=== PATIENT | female | born 1955 | race Caucasian/White ===

== ENCOUNTER 2019-01-10 10:42 | Emergency (ER) | payer OTHER ==
[~2019-01-10] VITALS: Ht 162.6 cm; Wt 75.8 kg
[~2019-01-10 10:42] MED LIST: CORTISONE PO; HYDR1TAB94 PO; IBUP400 PO
[2019-01-10] MEDS ORDERED: Norco 5-325 Ta1 EACH PO ×2 (12:00→12:12)
[2019-01-10] MEDS ORDERED: Augmentin 875-1 EACH PO (12:00)
== END 2019-01-10 12:25 | disposition home or self-care (01) ==
LOC: ER 10:42
DX: N76.2 Acute vulvitis (principal); F17.210 Nicotine dependence, cigarettes, uncomplicated
CPT/HCPCS: 96372; 99283-25; J1170; J1885; J2550

== ENCOUNTER 2019-01-12 10:13 | Inpatient (IN) | payer OTHER ==
[~2019-01-12] VITALS: Ht 162.6 cm; Wt 73.5 kg
[~2019-01-12 10:13] MED LIST changes: +Augmentin 875-1 EACH PO; +Norco 5-325 Ta1 EACH PO
[2019-01-12 10:44] LABS: BASOPHILS ABSOLUTE AUTO 0.07 K/mm3 (0.00-0.23); BASOPHILS PERCENT AUTO 0 % (0-2); EOSINOPHILS ABSOLUTE AUTO 0.17 K/mm3 (0.00-0.68); EOSINOPHILS PERCENT AUTO 1 % (0-6); Hematocrit 45.7 % (33.0-51.0); Hemoglobin 14.7 g/dL (11.5-16.0); IMMATURE GRAN ABSOLUTE AUTO 0.12 K/mm3 (0.00-0.10); IMMATURE GRAN PERCENT AUTO 1 % (0-1); LYMPHOCYTES ABSOLUTE AUTO 1.92 K/mm3 (0.84-5.20); LYMPHOCYTES PERCENT AUTO 9 % (21-46); MONOCYTES ABSOLUTE AUTO 1.11 K/mm3 (0.16-1.47); MONOCYTES PERCENT AUTO 6 % (4-13); Mean Corpuscular HGB 28.5 pg (26.0-34.0); Mean Corpuscular HGB Conc 32.2 g/dL (31.5-36.5); Mean Corpuscular Volume 89 fL (80-100); Mean Platelet Volume 8.5 fL (9.1-12.4); NEUTROPHILS ABSOLUTE AUTO 16.95 K/mm3 (1.96-9.15); NEUTROPHILS PERCENT AUTO 83 % (41-73); Platelet Count 479 K/mm3 (150-400); RDW Coefficient Variation 14.2 % (11.7-14.2); RDW Standard Deviation 46.1 fL (35.1-46.3); Red Blood Cell Count 5.15 M/mm3 (3.80-5.20); White Blood Cell Count 20.34 K/mm3 (4.00-11.30)
[2019-01-12 11:06] LABS: Alanine Aminotransfer (ALT/SGP 34 U/L (12-78); Albumin, Blood 3.4 g/dL (3.4-5.0); Albumin/Globulin Ratio 0.8 (0.8-1.8); Alk Phos 140 U/L (50-136); Anion Gap 6 mmol/L (6-16); Aspartate Aminotrans (AST/SGOT 27 U/L (12-37); Bilirubin, Total 0.6 mg/dL (0.1-1.0); Blood Urea Nitrogen 15 mg/dL (8-24); CO2, Blood 26 mmol/L (21-32); Calcium, Blood 9.2 mg/dL (8.5-10.1); Chloride, Blood 107 mmol/L (98-108); Creatinine, Blood 0.62 mg/dL (0.40-1.00); Globulin, Blood 4.4 g/dL (2.2-4.0); Glomerular Filtration Rate >60 (60-); Glucose, Blood 177 mg/dL (70-99); Potassium, Blood 3.7 mmol/L (3.5-5.5); Sodium, Blood 139 mmol/L (136-145); Total Protein, Blood 7.8 g/dL (6.4-8.2)
[2019-01-12] MEDS ORDERED: Mobic15 MG PO (13:16)
[2019-01-12] MEDS ORDERED: HYDSUL200 PO (13:16)
[2019-01-12] MEDS ORDERED: VITAMIN D250000 UNIT PO (13:17)
--- NOTE | 2019-01-12 15:32 | NUR ---
Assumed care of patient from Flavia PEGUERO-ED. A/O x 4, cooperative with care. Received in report patient is anxious and labile. Patient reports BANKS and nausea, medicated per EMAR. 20 g IV RFA. Patient settled and oriented to call light and room. 1 person assist BSC, alarm on, bed in lowest position, call light in reach.
--- NOTE | 2019-01-12 17:16 | NUR ---
Shift Summary A/O x 4. Patient has been tearful x 1 and complaining of nausea. Medicated per EMAR for nausea. Had 1 episode of vomiting this evening, but is now resting comfortably in bed asking about dinner. VSS, afebrile. No other complaints. Will continue to monitor until report given to DOROTHEA PEGUERO.
--- NOTE | 2019-01-12 17:43 | NUR ---
Patient fearful, crying, and frightened of needles when attempting to administer TD vaccine. Educated on the need for vaccine. Patient rolling around in bed crying and stated "I don't want it, don't give it to me." This student nurse and RN decided it was not safe to administer so patient was informed of the decision to not administer. Patient quickly changed her mind and stated "Just give it to me." RN held patient's hands to calm her down while this student nurse administered the vaccine. Other than anxiety and fear of needles, patient tolerated procedure well.
--- NOTE | 2019-01-12 18:27 | NUR ---
STUDENT HAS BEEN CARING FOR PT TODAY. PLEASE REFER TO STUDENT NOTE FOR SHIFT SUMMARY.
--- NOTE | 2019-01-13 04:37 | NUR ---
SHIFT SUMMARY: PT IS ALERT AND ORIENTED. PT IS RATHER ANXIOUS AND FEARFUL OF HER SITUATION, REASSURED NEEDED. PT IS A STANDBY ASSIST TO THE BATHROOM. FAMILY IN VISITING AT THE START OF SHIFT. PT REPORTS ONGOING HEADACHE, MEDICATING PER EMAR. PT REPORTS HEARTBURN ON ONE OCCASION, GAVE CHAMMOMILE TEA, RESOLVED. PT DENIES NAUSEA, VOMITING, AND SOB. PT SLEPT INTERMITTENTLY THROUGHOUT THE NIGHT. BED IN LOW POSITION, CALL LIGHT WITHIN REACH. WILL REPORT TO DAY NURSE.
[2019-01-13 05:17] LABS: Hematocrit 40.2 % (33.0-51.0); Hemoglobin 12.7 g/dL (11.5-16.0); Mean Corpuscular HGB 27.9 pg (26.0-34.0); Mean Corpuscular HGB Conc 31.6 g/dL (31.5-36.5); Mean Corpuscular Volume 88 fL (80-100); Mean Platelet Volume 8.8 fL (9.1-12.4); Platelet Count 450 K/mm3 (150-400); RDW Coefficient Variation 14.3 % (11.7-14.2); RDW Standard Deviation 46.1 fL (35.1-46.3); Red Blood Cell Count 4.55 M/mm3 (3.80-5.20); White Blood Cell Count 13.98 K/mm3 (4.00-11.30)
--- NOTE | 2019-01-13 09:00 | NUR ---
LATE ENTRY 0845 PT REPORTING BANKS, 10/10 THROBBING PAIN. PT SITTING IN BED HOLDING HEAD ROCKING BACK AND FORTH, PT IS IN TEARS. PT STATES SHE HAS NEVER HAD THIS BEFORE AND NOTHING HAS BEEN HELPING. NOTIFIED DR CARLSON, NO NEW ORDERS, DR TO REVIEW AND ENTER ORDER. 0900 ENTRY MEDICATED WITH 1MG DILAUDID AND ZOFRAN FOR NAUSEA. PT HAD 1 EPISOE OF EMESIS PRIOR TO ADMINISTRATION OF ZOFRAN. WARM WASH CLOTH APPLIED TO FOREHEAD. PT PAIN AT 8/10. WILL CONTINUE TO MONITOR.
--- NOTE | 2019-01-13 10:59 | NUR ---
PT BACK FRON CT. CONTINUE TO HAVE EMESIS AND BANKS. NOTIFIED DR CARLSON, NEW ORDERS ENTERED.
--- NOTE | 2019-01-13 11:11 | NUR ---
PT STATES NASUEA HAS PASSED AND NO LONGER NEEDS ADDITIONAL MEDICATIONS. WILL CONTINUE TO MONITOR.
--- NOTE | 2019-01-13 11:39 | NUR ---
AT 1132 PT REPORTING CHEST PRESSURE 3/10 IN CENTER OF CHEST. VS 152/88, HR 73, 97% ON RA, RR12 AND 97.3 TEMP. TELE SR AT 71. PT STATES BANKS AND NASUEA ARE GONE. PAIN IS NOT RADIATING. NOTIFIED DR CARLSON. NEW ORDERS FOR STAT EKG AND TROP. PT STS SHE HAS NOT TAKEN ANYTHING RECENTLY, STATES "POT/DUBS" LAST USED APPROXIMENTLY 3 WEEKS AGO AND HAS NOT USED METH "IN A WHILE" WHEN ASKED WHAT IN A WHILE MEANTS, PT STATES "IN MONTHS." WILL CONTINUE TO MONITOR.
--- NOTE | 2019-01-13 11:55 | NUR ---
EKG COMPLETED, DR CARLSON REVIEWED AND AT BEDSIDE. NEW ORDERS TO D/C TROP. DR CARLSON NOTIFIED PT OF CT/EKG RESULTS. WILL CONTINUE TO MONITOR.
--- NOTE | 2019-01-13 12:16 | NUR ---
PT RESTING IN BED, APPEARS TO BE SLEEPING. NO S/SX OF DISTRESS NOTED. WILL CONTINUE TO MONITOR.
--- NOTE | 2019-01-13 14:33 | NUR ---
NOTIFIED DR CARLSON OF WOUND CULTURE POSITIVE FOR MRSA. NEW ORDERS TO D/C CEFAZOLIN AND NEW ORDER FOR [facility] CONSULT. PT PLACED IN CONTACT ISOLATION
--- NOTE | 2019-01-13 19:33 | NUR ---
SHIFT SUMMARY PT A&Ox3. ANXIOUS AND COOPERATIVE WITH CARE. PT RESTING IN BED DURING SHIFT. UP ON SIDE OF BED FOR MEALS. UP IND TO BATHROOM. PT REPORTING BANKS AND LEFT LABIA PAIN, MEDICATED PER EMAR. PT REPORTS NAUSEA AND 2 EPISODES OF EMESIS, MEDICATED PER EMAR. PT DENIES SOB. CHEST "HEAVINESS" AFTER IMETRIX THIS AM, EKG COMPLETED, DR CARLSON AT BEDSIDE, NO FURTHER COMPLAINTS DURING SHIFT. PT WOUND CULTURE POSITIVE FOR MRSA, NOTIFIED DR CARLSON, SAÚL STARTED THIS AFTERNOON. VSS. NO OTHER ACUTE CHANGES NOTED DURING SHIFT. REPORT GIVEN TO ONCOMING RN.
--- NOTE | 2019-01-14 05:20 | NUR ---
63 Y/O FEMALE C/O ONGOING FRONTAL LOBE BANKS ALL EVENING WITH RELIEF FELT FROM IMITREX 25MG PO X 2 AND NORCO 5/325MG PO X 1 GIVEN. PT ABLE TO AMBULATE FROM BED TO BATHROOM AND BACK WITH GAIT SLOW AND STEADY X 1 STANDBY ASSIST.. PTS LEFT SIDED LABIA RED AND SWOLLEN. PTS BED IN LOW POSITION, CALL LIGHT AT SIDE.
[2019-01-14 15:41] LABS: Vancomycin, Trough 9.6 ug/mL (5.0-10.0)
--- NOTE | 2019-01-14 17:23 | NUR ---
SHIFT SUMMARY THE PATIENT PRESENTED THIS AM COMPLAINING OF A HEADACHE, WITH VITALS WNL, A&O X4, AND WITH LUNG SOUNDS THAT WERE CLEAR, BUT DIM IN THE BASES. THE PATIENT RECEIVED SEVERAL MEDICATIONS BEFORE THE HEADACHE DISOLVED. THE PATIENT HAS BEEN UPSET TODAY (EMOTIONALLY), BUT SPIRITAUL CONSULT HELPED HER. THE PATIENT HAS AN BUFFING WHEEL OPERATOR CONSULT ORDERED. THE PATIENT IS SLEEPING AT THIS TIME, WILL CONTINUE TO MONITOR.
[2019-01-15 05:16] LABS: BASOPHILS ABSOLUTE AUTO 0.09 K/mm3 (0.00-0.23); BASOPHILS PERCENT AUTO 1 % (0-2); EOSINOPHILS ABSOLUTE AUTO 0.19 K/mm3 (0.00-0.68); EOSINOPHILS PERCENT AUTO 2 % (0-6); Hematocrit 43.3 % (33.0-51.0); Hemoglobin 13.8 g/dL (11.5-16.0); IMMATURE GRAN ABSOLUTE AUTO 0.15 K/mm3 (0.00-0.10); IMMATURE GRAN PERCENT AUTO 1 % (0-1); LYMPHOCYTES PERCENT AUTO 17 % (21-46); MONOCYTES ABSOLUTE AUTO 1.01 K/mm3 (0.16-1.47); MONOCYTES PERCENT AUTO 9 % (4-13); Mean Corpuscular HGB 28.2 pg (26.0-34.0); Mean Corpuscular HGB Conc 31.9 g/dL (31.5-36.5); Mean Corpuscular Volume 89 fL (80-100); Mean Platelet Volume 8.4 fL (9.1-12.4); NEUTROPHILS PERCENT AUTO 71 % (41-73); Platelet Count 509 K/mm3 (150-400); RDW Coefficient Variation 13.9 % (11.7-14.2); RDW Standard Deviation 45.3 fL (35.1-46.3); Red Blood Cell Count 4.89 M/mm3 (3.80-5.20); White Blood Cell Count 11.54 K/mm3 (4.00-11.30)
--- NOTE | 2019-01-15 06:22 | NUR ---
SHIFT SUMMARY PT A/O C/O PAIN IN HEAD AND MEDICATED PER EMAR. C/O NAUSEA AND HEARTBURN, GOT ORDER FOR OT PEPCID PO FROM DR BREAUX. HEAD PUMPER MD SAID TO KEEP WARM COMPRESSES ON L SIDE LABIA AND IT HELPED DRAIN IT. SHE WAS DOZING ON AND OFF T/O NIGHT. LAB CAME IN AND SHE WAS VERY HESITANT C DRAW HE STATED SHE HAD THE RIGHT TO REFUSE IF SHE WANTED TO BUT SHE WENT AHEAD C THE DRAW BUT GASPED REALLY LOUD C THE NEEDLE PRICK AND PROCEEDED TO MOAN/CRY IN A DRAMATIC WAY SOBBING FOR AN APPROX ADDITIONAL 20 MIN AND VOMITED AFTERWARDS SAYING "HE MADE ME VERY UPSET". INCONT OF URINE AND ASSISTED TO TAKE A SHOWER. SCD'S IN PLACE. BED ALARM IN USE. CALL LIGHT IN REACH.
[2019-01-15 15:31] LABS: Creatinine, Blood 0.77 mg/dL (0.40-1.00); Vancomycin, Trough 12.7 ug/mL (5.0-10.0)
--- NOTE | 2019-01-15 18:21 | NUR ---
SHIFT SUMMARY NO ACUTE CHANGES. PATIENT MEDICATED X 1 FOR HEADACHE. PATIENT VERY FEARFUL OF NEEDLES AND HAD SOME EPISODES OF CRYING DURING LAB DRAWS AND INJECTIONS. PATIENT REPORTS HER ABSCESS IS FEEING MUCH BETTER. DENIES NAUSEA OR SHORTNESS OF BREATH. POSSIBLE DISCHARGE TOMORROW. CALL LIGHT IN REACH, WILL CONTINUE TO MONITOR.
--- NOTE | 2019-01-16 04:50 | NUR ---
ADMISSION DISCHARGE RN SUMMARY NO ACUTE CHANGES THIS SHIFT. PT AAOX3 AND STANDBY ASSIST TO BATHROOM. TREATED FOR HEADACHE X2 WITH FIORICET WITH GOOD RELIEF. ALSO GAVE PT ZOFRAN X1 FOR NAUSEA. CONTINUED ON IV ABX FOR LABIA CELLULITIS. AREA STILL DRAINING SMALL AMOUNT OF CLEAR/BROWN FLUID. PT REPORTS AREA LOOKS IMPROVED. VSS, WILL CONTINUE TO MONITOR.
[2019-01-16 06:42] LABS: BASOPHILS ABSOLUTE AUTO 0.11 K/mm3 (0.00-0.23); BASOPHILS PERCENT AUTO 1 % (0-2); EOSINOPHILS ABSOLUTE AUTO 0.18 K/mm3 (0.00-0.68); EOSINOPHILS PERCENT AUTO 2 % (0-6); Hematocrit 44.8 % (33.0-51.0); Hemoglobin 14.3 g/dL (11.5-16.0); IMMATURE GRAN ABSOLUTE AUTO 0.18 K/mm3 (0.00-0.10); IMMATURE GRAN PERCENT AUTO 2 % (0-1); LYMPHOCYTES PERCENT AUTO 25 % (21-46); MONOCYTES PERCENT AUTO 11 % (4-13); Mean Corpuscular HGB Conc 31.9 g/dL (31.5-36.5); Mean Corpuscular Volume 88 fL (80-100); Mean Platelet Volume 8.6 fL (9.1-12.4); NEUTROPHILS ABSOLUTE AUTO 5.37 K/mm3 (1.96-9.15); NEUTROPHILS PERCENT AUTO 59 % (41-73); Platelet Count 492 K/mm3 (150-400); RDW Standard Deviation 44.7 fL (35.1-46.3); White Blood Cell Count 9.14 K/mm3 (4.00-11.30)
--- NOTE | 2019-01-16 10:02 | NUR ---
HEARTBURN PT. COMPLAINS OF HEARTBURN AND NAUSEA. REGLAN ADMINISTERED-CALL PLACED TO DR. LOBO FOR ANTACID. PATINT ALSO STATES THAT SHE WOULD LIKE TO BE STARTED ON A PROBIOTIC. WILL DISCUSS WITH DR. LOBO UPON CALL BACK
[2019-01-16] MEDS ORDERED: Esgic Tablet1 EACH PO (12:51)
[2019-01-16] MEDS ORDERED: OMEPRAZOLE MAGN20 MG PO (12:52)
[2019-01-16] MEDS ORDERED: Bactrim Ds Tab1 EACH PO (12:53)
--- NOTE | 2019-01-16 14:15 | NUR ---
DISCHARGE NOTE PT DISCHARGED HOME AMBULATORY POV WITH FRIEND. VERBALIZED UNDERSTANDING OF TAKING MEDICATIONS PRESCRIBED AND MAKING FOLLOW UP APPT WITH OBGYN (NAME AND OFFICE NUMBERS PROVIDED). IV DISCONTINUED INTACT. ALL BELONGINGS SENT WITH PT AT TIME OF DISCHARGE.
== END 2019-01-16 14:26 | disposition short-term general hospital (02) | DRG 872 ==
LOC: ER 10:13 → MEDS 12:58
PROVIDERS: Hospitalist; Physician Assistant; ADMIT Internal Medicine
DX: A41.02 Sepsis due to Methicillin resistant Staphylococcus aureus (principal); N76.2 Acute vulvitis; M06.9 Rheumatoid arthritis, unspecified; Z85.41 Personal history of malignant neoplasm of cervix uteri; Z96.651 Presence of right artificial knee joint; F17.210 Nicotine dependence, cigarettes, uncomplicated; R07.9 Chest pain, unspecified
CPT/HCPCS: 36415; 70450; 72193; 80053; 80202; 82565; 83036; 83605; 85025; 85027; 87040; 87070; 87075; 87077; 87147; 87186; 87205; 90714; 93005; 93010; 96361; 96365-59; 96375-59; 96376-59; 99284-25; A9270-GY; J0690; J1170; J1650; J2405; J2543; J2765; J3030; J3370; J7030; J7050; J7120; Q9967

== ENCOUNTER → 2019-05-31 | Outpatient (CLI) | payer OTHER ==
[~2019-05-31] MED LIST changes: +Bactrim Ds Tab1 EACH PO; +Esgic Tablet1 EACH PO; +HYDSUL200 PO; +Mobic15 MG PO; +OMEPRAZOLE MAGN20 MG PO; +Robaxin-750750 MG PO; +VITAMIN D250000 UNIT PO
[2019-05-31 16:43] LABS: Alanine Aminotransfer (ALT/SGP 28 U/L (12-78); Albumin, Blood 3.7 g/dL (3.4-5.0); Albumin/Globulin Ratio 1.2 (0.8-1.8); Alk Phos 92 U/L (50-136); Anion Gap 5 mmol/L (6-16); Aspartate Aminotrans (AST/SGOT 19 U/L (12-37); Bilirubin, Total 0.3 mg/dL (0.1-1.0); Blood Urea Nitrogen 23 mg/dL (8-24); Bun/Creatinine Ratio 37.6 (12.0-20.0); CO2, Blood 25 mmol/L (21-32); Calcium, Blood 9.2 mg/dL (8.5-10.1); Chloride, Blood 109 mmol/L (98-108); Creatinine, Blood 0.61 mg/dL (0.40-1.00); Glomerular Filtration Rate >60 (60-); Glucose, Blood 185 mg/dL (70-99); Potassium, Blood 4.1 mmol/L (3.5-5.5); Sodium, Blood 139 mmol/L (136-145); Total Protein, Blood 6.7 g/dL (6.4-8.2)
== END | disposition home or self-care (01) ==
LOC: EDSTATUS 09:29 → LAB SHORT 16:15 → LAB 16:15
PROVIDERS: Family Medicine
DX: M06.9 Rheumatoid arthritis, unspecified (principal); I73.9 Peripheral vascular disease, unspecified; I73.1 Thromboangiitis obliterans [Buerger's disease]
CPT/HCPCS: 80053; 83735

== ENCOUNTER 2019-06-03 17:06 | Emergency (ER) | payer OTHER ==
[~2019-06-03] VITALS: Ht 162.6 cm; Wt 84.4 kg
[~2019-06-03 17:06] MED LIST changes: -Robaxin-750750 MG PO
[2019-06-03] MEDS ORDERED: Robaxin-750750 MG PO (21:41)
== END 2019-06-03 22:17 | disposition home or self-care (01) ==
LOC: ER 17:06
DX: R25.2 Cramp and spasm (principal); M06.9 Rheumatoid arthritis, unspecified; K21.9 Gastro-esophageal reflux disease without esophagitis; Z79.899 Other long term (current) drug therapy; F17.210 Nicotine dependence, cigarettes, uncomplicated
CPT/HCPCS: 36415; 80053; 83735; 85025; 93971; 96372; 99283-25; J1630; Q0163

== ENCOUNTER 2019-08-26 20:32 | Emergency (ER) | payer OTHER ==
[~2019-08-26] VITALS: Ht 162.6 cm; Wt 79.8 kg
[~2019-08-26 20:32] MED LIST changes: +Robaxin-750750 MG PO
[2019-08-26] MEDS ORDERED: Bactrim Ds Tab1 EACH PO (21:07)
== END 2019-08-26 21:15 | disposition home or self-care (01) ==
LOC: ER 20:32
DX: A49.02 Methicillin resistant Staphylococcus aureus infection, unspecified site (principal); K21.9 Gastro-esophageal reflux disease without esophagitis; F17.210 Nicotine dependence, cigarettes, uncomplicated; Z79.899 Other long term (current) drug therapy
CPT/HCPCS: 99283; A9270-GY

== ENCOUNTER 2019-09-03 17:37 | Emergency (ER) | payer OTHER ==
[~2019-09-03] VITALS: Ht 162.6 cm; Wt 77.1 kg
[2019-09-03] MEDS ORDERED: Prednisone10 MG PO (17:55)
[2019-09-03] MEDS ORDERED: HYDCHL25 PO (17:55)
[2019-09-03 18:42] LABS: Alanine Aminotransfer (ALT/SGP 27 U/L (12-78); Albumin, Blood 4.3 g/dL (3.4-5.0); Alk Phos 101 U/L (50-136); Anion Gap 7 mmol/L (6-16); Aspartate Aminotrans (AST/SGOT 25 U/L (12-37); Bilirubin, Total 0.5 mg/dL (0.1-1.0); Blood Urea Nitrogen 27 mg/dL (8-24); Bun/Creatinine Ratio 30.7 (12.0-20.0); CO2, Blood 25 mmol/L (21-32); Calcium, Blood 9.8 mg/dL (8.5-10.1); Chloride, Blood 103 mmol/L (98-108); Creatinine, Blood 0.88 mg/dL (0.40-1.00); Globulin, Blood 4.1 g/dL (2.2-4.0); Glomerular Filtration Rate >60 (60-); Glucose, Blood 111 mg/dL (70-99); Potassium, Blood 5.1 mmol/L (3.5-5.5); Sodium, Blood 135 mmol/L (136-145); Total Protein, Blood 8.4 g/dL (6.4-8.2)
[2019-09-03 19:09] LABS: BASOPHILS ABSOLUTE AUTO 0.07 K/mm3 (0.00-0.23); BASOPHILS PERCENT AUTO 1 % (0-2); EOSINOPHILS ABSOLUTE AUTO 0.19 K/mm3 (0.00-0.68); EOSINOPHILS PERCENT AUTO 1 % (0-6); Hematocrit 49.5 % (33.0-51.0); Hemoglobin 16.1 g/dL (11.5-16.0); IMMATURE GRAN ABSOLUTE AUTO 0.05 K/mm3 (0.00-0.10); IMMATURE GRAN PERCENT AUTO 0 % (0-1); LYMPHOCYTES ABSOLUTE AUTO 2.31 K/mm3 (0.84-5.20); LYMPHOCYTES PERCENT AUTO 17 % (21-46); MONOCYTES ABSOLUTE AUTO 1.16 K/mm3 (0.16-1.47); MONOCYTES PERCENT AUTO 9 % (4-13); Mean Corpuscular HGB 28.2 pg (26.0-34.0); Mean Corpuscular HGB Conc 32.5 g/dL (31.5-36.5); Mean Corpuscular Volume 87 fL (80-100); Mean Platelet Volume 8.6 fL (9.1-12.4); NEUTROPHILS ABSOLUTE AUTO 9.72 K/mm3 (1.96-9.15); NEUTROPHILS PERCENT AUTO 72 % (41-73); Platelet Count 485 K/mm3 (150-400); RDW Coefficient Variation 14.5 % (11.7-14.2); RDW Standard Deviation 46.2 fL (35.1-46.3); Red Blood Cell Count 5.71 M/mm3 (3.80-5.20)
[2019-09-03 21:00] LABS: Source, Urine Clean Catch
[2019-09-03 21:04] LABS: Blood, Urine Neg (Neg); Glucose Qualitative, Urine Neg (Neg); Ketones, Urine 3+ (Neg); Leukocyte Esterase, Urine 1+ (Neg); Nitrite, Urine Neg (Neg); Protein, Urine 2+ (Neg); Specific Gravity, Urine 1.025 (1.003-1.022); Urobilinogen, Urine 1+ (Normal)
[2019-09-03] MEDS ORDERED: Colace100 MG PO (21:05)
[2019-09-03] MEDS ORDERED: Magnesium Citr296 ML PO (21:05)
[2019-09-03 21:16] LABS: Bilirubin, Urine 2+ (Neg)
[2019-09-03 21:17] LABS: Appearance, Urine Clear (Clear); Color, Urine Yellow (P-Yellow)
[2019-09-03 21:18] LABS: Red Blood Cells, Urine Not Seen /hpf (0-2); Squamous Epithelial Cells Mod /hpf (Few); White Blood Cells, Urine 0-2 /hpf (0-5)
[2019-09-03 21:19] LABS: Bacteria Mod /hpf
[2019-09-03 21:20] LABS: Hyaline Casts Rare /lpf (0-2); Mucus Light (0-Heavy)
== END 2019-09-03 21:52 | disposition home or self-care (01) ==
LOC: ER 17:37
PROVIDERS: Physician Assistant
DX: K59.00 Constipation, unspecified (principal); Z79.899 Other long term (current) drug therapy; Z79.52 Long term (current) use of systemic steroids; K21.9 Gastro-esophageal reflux disease without esophagitis; F17.210 Nicotine dependence, cigarettes, uncomplicated
CPT/HCPCS: 36415; 74018; 80053; 81001; 85025; 87086; 99283-25

== ENCOUNTER → 2020-07-05 | Outpatient (CLI) | payer OTHER ==
[~2020-07-05] MED LIST changes: +Colace100 MG PO; +Cyclobenzaprine5 MG PO; +HYDCHL25 PO; +Magnesium Citr296 ML PO; +Prednisone10 MG PO
== END | disposition home or self-care (01) ==
LOC: PLD 07:43 → LAB SHORT 07:43
DX: L30.8 Other specified dermatitis (principal)
CPT/HCPCS: 88305; 88312; 88313

== ENCOUNTER 2020-08-23 09:58 | Emergency (ER) | payer OTHER ==
[~2020-08-23] VITALS: Ht 170.2 cm; Wt 77.1 kg
[2020-08-23 10:56] LABS: BASOPHILS ABSOLUTE AUTO 0.07 K/mm3 (0.00-0.23); BASOPHILS PERCENT AUTO 1 % (0-2); EOSINOPHILS ABSOLUTE AUTO 0.24 K/mm3 (0.00-0.68); EOSINOPHILS PERCENT AUTO 3 % (0-6); Hematocrit 50.7 % (33.0-51.0); Hemoglobin 16.3 g/dL (11.5-16.0); IMMATURE GRAN ABSOLUTE AUTO 0.02 K/mm3 (0.00-0.10); IMMATURE GRAN PERCENT AUTO 0 % (0-1); LYMPHOCYTES ABSOLUTE AUTO 2.02 K/mm3 (0.84-5.20); LYMPHOCYTES PERCENT AUTO 26 % (21-46); MONOCYTES ABSOLUTE AUTO 0.85 K/mm3 (0.16-1.47); MONOCYTES PERCENT AUTO 11 % (4-13); Mean Corpuscular HGB 27.9 pg (26.0-34.0); Mean Corpuscular HGB Conc 32.1 g/dL (31.5-36.5); Mean Corpuscular Volume 87 fL (80-100); Mean Platelet Volume 8.6 fL (9.1-12.4); NEUTROPHILS ABSOLUTE AUTO 4.65 K/mm3 (1.96-9.15); NEUTROPHILS PERCENT AUTO 59 % (41-73); Platelet Count 442 K/mm3 (150-400); RDW Coefficient Variation 14.6 % (11.7-14.2); RDW Standard Deviation 47.1 fL (35.1-46.3); Red Blood Cell Count 5.85 M/mm3 (3.80-5.20); White Blood Cell Count 7.85 K/mm3 (4.00-11.30)
[2020-08-23 11:12] LABS: Alanine Aminotransfer (ALT/SGP 58 U/L (12-78); Albumin, Blood 3.7 g/dL (3.4-5.0); Albumin/Globulin Ratio 0.9 (0.8-1.8); Alk Phos 151 U/L (50-136); Anion Gap 4 mmol/L (6-16); Aspartate Aminotrans (AST/SGOT 40 U/L (12-37); Bilirubin, Total 0.3 mg/dL (0.1-1.0); Blood Urea Nitrogen 25 mg/dL (8-24); Bun/Creatinine Ratio 41.1 (12.0-20.0); CO2, Blood 29 mmol/L (21-32); Calcium, Blood 9.5 mg/dL (8.5-10.1); Chloride, Blood 106 mmol/L (98-108); Creatinine, Blood 0.61 mg/dL (0.40-1.00); Globulin, Blood 3.9 g/dL (2.2-4.0); Glomerular Filtration Rate >60 (60-); Glucose, Blood 101 mg/dL (70-99); Potassium, Blood 4.4 mmol/L (3.5-5.5); Sodium, Blood 139 mmol/L (136-145); Total Protein, Blood 7.6 g/dL (6.4-8.2)
[2020-08-23 12:09] LABS: Source, Urine Clean Catch
[2020-08-23 12:13] LABS: Appearance, Urine Clear (Clear); Bilirubin, Urine Neg (Neg); Blood, Urine 1+ (Neg); Color, Urine Yellow (P-Yellow); Glucose Qualitative, Urine Neg (Neg); Ketones, Urine Neg (Neg); Leukocyte Esterase, Urine 2+ (Neg); Nitrite, Urine Pos (Neg); Protein, Urine Neg (Neg); Specific Gravity, Urine 1.015 (1.003-1.022); Urobilinogen, Urine NORM (Normal)
[2020-08-23 12:35] LABS: Bacteria Many /hpf; Red Blood Cells, Urine 0-2 /hpf (0-2); Squamous Epithelial Cells Mod /hpf (Few)
[2020-08-23] MEDS ORDERED: METPRE4DP PO (14:49)
[2020-08-23] MEDS ORDERED: OXYC5 PO (14:49)
== END 2020-08-23 15:58 | disposition home or self-care (01) ==
LOC: ER 09:58
PROVIDERS: Emergency Medicine
DX: M51.16 Intervertebral disc disorders with radiculopathy, lumbar region (principal); M21.371 Foot drop, right foot; Z79.899 Other long term (current) drug therapy
CPT/HCPCS: 36415; 72100; 72148; 80053; 81001; 85025; 87077; 87086; 87186; 96374; 99284-25; J1100

== ENCOUNTER 2020-08-29 21:56 | Emergency (ER) | payer OTHER ==
[~2020-08-29] VITALS: Ht 162.6 cm; Wt 79.8 kg
[~2020-08-29 21:56] MED LIST changes: +METPRE4DP PO; +OXYC5 PO
[2020-08-29 22:28] LABS: BASOPHILS ABSOLUTE AUTO 0.09 K/mm3 (0.00-0.23); BASOPHILS PERCENT AUTO 1 % (0-2); EOSINOPHILS ABSOLUTE AUTO 0.36 K/mm3 (0.00-0.68); EOSINOPHILS PERCENT AUTO 2 % (0-6); Hemoglobin 15.7 g/dL (11.5-16.0); IMMATURE GRAN PERCENT AUTO 1 % (0-1); LYMPHOCYTES ABSOLUTE AUTO 3.46 K/mm3 (0.84-5.20); LYMPHOCYTES PERCENT AUTO 21 % (21-46); MONOCYTES ABSOLUTE AUTO 1.38 K/mm3 (0.16-1.47); MONOCYTES PERCENT AUTO 8 % (4-13); Mean Corpuscular HGB 27.7 pg (26.0-34.0); Mean Corpuscular Volume 86 fL (80-100); Mean Platelet Volume 8.6 fL (9.1-12.4); NEUTROPHILS ABSOLUTE AUTO 11.49 K/mm3 (1.96-9.15); NEUTROPHILS PERCENT AUTO 68 % (41-73); Platelet Count 479 K/mm3 (150-400); RDW Coefficient Variation 14.6 % (11.7-14.2); RDW Standard Deviation 46.8 fL (35.1-46.3); Red Blood Cell Count 5.67 M/mm3 (3.80-5.20); White Blood Cell Count 16.88 K/mm3 (4.00-11.30)
[2020-08-29 22:42] LABS: International Normalized Ratio 0.95; Prothrombin Time Results 10.2 Sec (9.7-11.5)
[2020-08-29 22:50] LABS: Alanine Aminotransfer (ALT/SGP 43 U/L (12-78); Albumin, Blood 4.2 g/dL (3.4-5.0); Albumin/Globulin Ratio 1.2 (0.8-1.8); Alk Phos 136 U/L (50-136); Anion Gap 6 mmol/L (6-16); Aspartate Aminotrans (AST/SGOT 27 U/L (12-37); Bilirubin, Total 0.8 mg/dL (0.1-1.0); Blood Urea Nitrogen 30 mg/dL (8-24); Bun/Creatinine Ratio 42.2 (12.0-20.0); C-REACTIVE PROTEIN, EXT RANGE <0.290 mg/dL (0.000-0.300); CO2, Blood 30 mmol/L (21-32); Calcium, Blood 9.4 mg/dL (8.5-10.1); Chloride, Blood 105 mmol/L (98-108); Creatinine, Blood 0.71 mg/dL (0.40-1.00); Globulin, Blood 3.6 g/dL (2.2-4.0); Glomerular Filtration Rate >60 (60-); Glucose, Blood 100 mg/dL (70-99); Potassium, Blood 3.8 mmol/L (3.5-5.5); Sodium, Blood 141 mmol/L (136-145); Total Protein, Blood 7.8 g/dL (6.4-8.2); Troponin I <0.015 ng/mL (0.000-0.040)
[2020-08-29] MEDS ORDERED: Hydroxychloroq200 MG PO (23:46)
[2020-08-29] MEDS ORDERED: OXYC5 (23:48)
[2020-08-30] MEDS ORDERED: Roxicodone5 MG PO (00:19)
== END 2020-08-30 01:00 | disposition home or self-care (01) ==
LOC: ER 21:56
PROVIDERS: Physician Assistant
DX: M79.604 Pain in right leg (principal); G54.4 Lumbosacral root disorders, not elsewhere classified; F17.210 Nicotine dependence, cigarettes, uncomplicated; Z79.52 Long term (current) use of systemic steroids
CPT/HCPCS: 36415; 80053; 84484; 85025; 85610; 86140; 93005; 93010; 93925; 96374; 96375; 99284-25; A9270; J1170; J2405

== ENCOUNTER → 2020-09-11 | Outpatient (CLI) | payer OTHER ==
[~2020-09-11] MED LIST changes: +Hydroxychloroq200 MG PO; +OXYC5; +Roxicodone5 MG PO
[2020-09-14 04:46] LABS: CHLAMYDIA TRACHOMATIS, NAA Negative (Negative)
== END | disposition home or self-care (01) ==
LOC: LAB EV 11:47 → LAB SHORT 11:47
PROVIDERS: Physician Assistant
DX: N89.8 Other specified noninflammatory disorders of vagina (principal)
CPT/HCPCS: 87070; 87205; 87491; 87591

== ENCOUNTER 2020-09-17 16:06 | Emergency (ER) | payer OTHER ==
[~2020-09-17] VITALS: Ht 162.6 cm; Wt 79.8 kg
== END 2020-09-17 16:46 | disposition home or self-care (01) ==
LOC: ER 16:06
DX: Z48.00 Encounter for change or removal of nonsurgical wound dressing (principal); F17.210 Nicotine dependence, cigarettes, uncomplicated
CPT/HCPCS: 99282

== ENCOUNTER → 2020-09-18 | Outpatient (CLI) | payer OTHER | END | disposition home or self-care (01) | LOC: LAB SHORT 16:15 → LAB 16:15 | DX: S90.851A Superficial foreign body, right foot, initial encounter (principal) | CPT/HCPCS: 87070; 87075; 87077; 87186; 87205 ==

== ENCOUNTER → 2020-09-22 | Outpatient (CLI) | payer OTHER ==
[2020-09-22 12:48] LABS: BASOPHILS ABSOLUTE AUTO 0.09 K/mm3 (0.00-0.23); BASOPHILS PERCENT AUTO 1 % (0-2); EOSINOPHILS ABSOLUTE AUTO 0.26 K/mm3 (0.00-0.68); EOSINOPHILS PERCENT AUTO 2 % (0-6); Hematocrit 42.8 % (33.0-51.0); Hemoglobin 14.1 g/dL (11.5-16.0); IMMATURE GRAN ABSOLUTE AUTO 0.06 K/mm3 (0.00-0.10); IMMATURE GRAN PERCENT AUTO 1 % (0-1); LYMPHOCYTES ABSOLUTE AUTO 2.04 K/mm3 (0.84-5.20); LYMPHOCYTES PERCENT AUTO 18 % (21-46); MONOCYTES ABSOLUTE AUTO 1.08 K/mm3 (0.16-1.47); MONOCYTES PERCENT AUTO 9 % (4-13); Mean Corpuscular HGB Conc 32.9 g/dL (31.5-36.5); Mean Corpuscular Volume 85 fL (80-100); Mean Platelet Volume 8.7 fL (9.1-12.4); NEUTROPHILS ABSOLUTE AUTO 8.12 K/mm3 (1.96-9.15); NEUTROPHILS PERCENT AUTO 70 % (41-73); Platelet Count 468 K/mm3 (150-400); RDW Coefficient Variation 15.3 % (11.7-14.2); RDW Standard Deviation 47.3 fL (35.1-46.3); Red Blood Cell Count 5.03 M/mm3 (3.80-5.20); White Blood Cell Count 11.65 K/mm3 (4.00-11.30)
[2020-09-22 12:58] LABS: Alanine Aminotransfer (ALT/SGP 33 U/L (12-78); Albumin, Blood 3.5 g/dL (3.4-5.0); Albumin/Globulin Ratio 0.9 (0.8-1.8); Alk Phos 111 U/L (40-126); Anion Gap 12 mmol/L (6-16); Aspartate Aminotrans (AST/SGOT 17 U/L (12-37); Bilirubin, Total 0.4 mg/dL (0.1-1.0); Blood Urea Nitrogen 26 mg/dL (8-24); Bun/Creatinine Ratio 32.5 (12.0-20.0); CO2, Blood 26 mmol/L (21-32); Chloride, Blood 101 mmol/L (98-108); Globulin, Blood 3.8 g/dL (2.2-4.0); Glomerular Filtration Rate >60 (60-); Glucose, Blood 128 mg/dL (70-99); Potassium, Blood 3.9 mmol/L (3.5-5.5); Sodium, Blood 139 mmol/L (136-145); Total Protein, Blood 7.3 g/dL (6.4-8.2)
== END ==
LOC: LAB SHORT 12:42 → PLD 12:42
PROVIDERS: General Practice
DX: G43.909 Migraine, unspecified, not intractable, without status migrainosus (principal)
CPT/HCPCS: 80053; 85025

== ENCOUNTER → 2021-01-12 | Outpatient (CLI) | payer OTHER ==
[2021-01-12 15:32] LABS: BASOPHILS ABSOLUTE AUTO 0.07 K/mm3 (0.00-0.23); BASOPHILS PERCENT AUTO 2 % (0-2); EOSINOPHILS PERCENT AUTO 5 % (0-6); Hematocrit 41.1 % (33.0-51.0); Hemoglobin 13.4 g/dL (11.5-16.0); IMMATURE GRAN ABSOLUTE AUTO 0.03 K/mm3 (0.00-0.10); IMMATURE GRAN PERCENT AUTO 1 % (0-1); LYMPHOCYTES ABSOLUTE AUTO 2.02 K/mm3 (0.84-5.20); LYMPHOCYTES PERCENT AUTO 46 % (21-46); MONOCYTES ABSOLUTE AUTO 0.67 K/mm3 (0.16-1.47); MONOCYTES PERCENT AUTO 15 % (4-13); Mean Corpuscular HGB 27.4 pg (26.0-34.0); Mean Corpuscular HGB Conc 32.6 g/dL (31.5-36.5); Mean Corpuscular Volume 84 fL (80-100); Mean Platelet Volume 8.6 fL (9.1-12.4); NEUTROPHILS ABSOLUTE AUTO 1.41 K/mm3 (1.96-9.15); NEUTROPHILS PERCENT AUTO 32 % (41-73); Platelet Count 344 K/mm3 (150-400); RDW Coefficient Variation 16.8 % (11.7-14.2); RDW Standard Deviation 50.2 fL (35.1-46.3); Red Blood Cell Count 4.89 M/mm3 (3.80-5.20)
[2021-01-12 15:45] LABS: Anion Gap 9 mmol/L (6-16); Blood Urea Nitrogen 23 mg/dL (8-24); Bun/Creatinine Ratio 30.3 (12.0-20.0); CO2, Blood 28 mmol/L (21-32); Calcium, Blood 9.1 mg/dL (8.5-10.1); Chloride, Blood 105 mmol/L (98-108); Creatinine, Blood 0.76 mg/dL (0.40-1.00); Glomerular Filtration Rate >60 (60-); Glucose, Blood 108 mg/dL (70-99); Potassium, Blood 3.8 mmol/L (3.5-5.5); Sodium, Blood 142 mmol/L (136-145)
[2021-01-12 15:46] LABS: Troponin I <0.017 ng/mL (0.000-0.040)
== END | disposition home or self-care (01) ==
LOC: LAB SHORT 15:27
PROVIDERS: Physician Assistant
DX: R63.5 Abnormal weight gain (principal); R60.9 Edema, unspecified
CPT/HCPCS: 80048; 83880; 84443; 84484; 85025

== ENCOUNTER 2021-01-26 03:05 | Emergency (ER) | payer OTHER ==
[~2021-01-26] VITALS: Ht 162.6 cm; Wt 86.2 kg
== END 2021-01-26 03:25 | disposition left against medical advice (07) ==
LOC: ER 03:05
DX: Z53.21 Procedure and treatment not carried out due to patient leaving prior to being seen by health care provider (principal)

== ENCOUNTER → 2021-03-30 | Outpatient (CLI) | payer OTHER ==
[2021-03-31 09:20] LABS: Candida species (DNA Probe) Positive (NEGATIVE); G. vaginalis (DNA Probe) Negative (NEGATIVE); T. vaginalis (DNA Probe) Negative (NEGATIVE)
== END | disposition home or self-care (01) ==
LOC: LAB SHORT 19:18 → LAB 19:18
PROVIDERS: Family Medicine
DX: R30.0 Dysuria (principal)
CPT/HCPCS: 87077; 87086; 87186; 87480; 87510; 87660

== ENCOUNTER 2021-04-21 09:02 | Emergency (ER) | payer OTHER ==
[~2021-04-21] VITALS: Ht 162.6 cm; Wt 77.1 kg
[2021-04-21] MEDS ORDERED: FUROSEMIDE20 MG PO (09:20)
[2021-04-21] MEDS ORDERED: ALPRAZOLAM0.5 M1 PO (09:20)
[2021-04-21] MEDS ORDERED: ESCI20 PO (09:20)
[2021-04-21] MEDS ORDERED: OMEP20ER PO (09:20)
[2021-04-21] MEDS ORDERED: Buspirone HCl15 MG PO (09:20)
[2021-04-21] MEDS ORDERED: BUSP10 PO (09:20)
[2021-04-21] MEDS ORDERED: PREGABALIN100 MG PO (09:21)
[2021-04-21] MEDS ORDERED: KLOR-CON 1010 ME3 PO (09:21)
[2021-04-21] MEDS ORDERED: HYDHCL25 PO (09:21)
[2021-04-21 10:10] LABS: BASOPHILS ABSOLUTE AUTO 0.07 K/mm3 (0.00-0.23); BASOPHILS PERCENT AUTO 1 % (0-2); EOSINOPHILS PERCENT AUTO 2 % (0-6); Hematocrit 39.9 % (33.0-51.0); IMMATURE GRAN ABSOLUTE AUTO 0.03 K/mm3 (0.00-0.10); IMMATURE GRAN PERCENT AUTO 0 % (0-1); LYMPHOCYTES PERCENT AUTO 15 % (21-46); MONOCYTES ABSOLUTE AUTO 0.66 K/mm3 (0.16-1.47); MONOCYTES PERCENT AUTO 7 % (4-13); Mean Corpuscular HGB 26.2 pg (26.0-34.0); Mean Corpuscular HGB Conc 32.6 g/dL (31.5-36.5); Mean Corpuscular Volume 80 fL (80-100); NEUTROPHILS ABSOLUTE AUTO 7.02 K/mm3 (1.96-9.15); NEUTROPHILS PERCENT AUTO 75 % (41-73); Platelet Count 430 K/mm3 (150-400); RDW Coefficient Variation 16.7 % (11.7-14.2); RDW Standard Deviation 48.7 fL (35.1-46.3); Red Blood Cell Count 4.97 M/mm3 (3.80-5.20); White Blood Cell Count 9.38 K/mm3 (4.00-11.30)
[2021-04-21 10:18] LABS: Anion Gap 7 mmol/L (6-16); Blood Urea Nitrogen 22 mg/dL (8-24); Bun/Creatinine Ratio 35.7 (12.0-20.0); CO2, Blood 27 mmol/L (21-32); Calcium, Blood 8.9 mg/dL (8.5-10.1); Chloride, Blood 108 mmol/L (98-108); Creatinine, Blood 0.62 mg/dL (0.40-1.00); Glomerular Filtration Rate >60 (60-); Glucose, Blood 123 mg/dL (70-99); Potassium, Blood 3.3 mmol/L (3.5-5.5); Sodium, Blood 142 mmol/L (136-145)
[2021-04-21] MEDS ORDERED: IBUP600 PO (12:38)
== END 2021-04-21 14:54 | disposition home or self-care (01) ==
LOC: ER 09:02
PROVIDERS: Student in an Organized Health Care Education/Training Program
DX: L03.116 Cellulitis of left lower limb (principal); L03.115 Cellulitis of right lower limb; K21.9 Gastro-esophageal reflux disease without esophagitis; F17.210 Nicotine dependence, cigarettes, uncomplicated; Z88.6 Allergy status to analgesic agent; Z88.5 Allergy status to narcotic agent; Z79.899 Other long term (current) drug therapy
CPT/HCPCS: 36415; 80048; 85025; 85651; 86141; 96365; 96367; 96375; 99283-25; A9270; J0696; J1885; J2765; J3370; J7050

== ENCOUNTER → 2021-04-22 | Outpatient (CLI) | payer OTHER ==
[~2021-04-22] MED LIST changes: +ALPRAZOLAM0.5 M1 PO; +BUSP10 PO; +Buspirone HCl15 MG PO; +ESCI20 PO; +FUROSEMIDE20 MG PO; +HYDHCL25 PO; +IBUP600 PO; +KLOR-CON 1010 ME3 PO; +OMEP20ER PO; +PREGABALIN100 MG PO
== END | disposition home or self-care (01) ==
LOC: LAB 17:20 → LAB SHORT 17:20
DX: L03.116 Cellulitis of left lower limb (principal)
CPT/HCPCS: 87070; 87075; 87077; 87147; 87186; 87205

== ENCOUNTER 2021-09-02 21:38 | Emergency (ER) | payer OTHER ==
[~2021-09-02] VITALS: Ht 162.6 cm; Wt 77.1 kg
[2021-09-02] MEDS ORDERED: Prednisone20 MG PO (22:16)
== END 2021-09-02 22:28 | disposition home or self-care (01) ==
LOC: ER 21:38
DX: M06.9 Rheumatoid arthritis, unspecified (principal); K21.9 Gastro-esophageal reflux disease without esophagitis; F17.210 Nicotine dependence, cigarettes, uncomplicated; Z88.5 Allergy status to narcotic agent; Z88.6 Allergy status to analgesic agent; Z79.899 Other long term (current) drug therapy
CPT/HCPCS: 99282; A9270; J7512

== ENCOUNTER → 2022-01-25 | Outpatient (CLI) | payer OTHER ==
[~2022-01-25] MED LIST changes: +Prednisone20 MG PO
[2022-01-25 17:49] LABS: BASOPHILS ABSOLUTE AUTO 0.07 K/mm3 (0.00-0.23); BASOPHILS PERCENT AUTO 0 % (0-2); EOSINOPHILS ABSOLUTE AUTO 0.18 K/mm3 (0.00-0.68); EOSINOPHILS PERCENT AUTO 1 % (0-6); Hemoglobin 12.6 g/dL (11.5-16.0); IMMATURE GRAN ABSOLUTE AUTO 0.19 K/mm3 (0.00-0.10); IMMATURE GRAN PERCENT AUTO 1 % (0-1); LYMPHOCYTES ABSOLUTE AUTO 1.94 K/mm3 (0.84-5.20); LYMPHOCYTES PERCENT AUTO 12 % (21-46); MONOCYTES ABSOLUTE AUTO 1.01 K/mm3 (0.16-1.47); MONOCYTES PERCENT AUTO 6 % (4-13); Mean Corpuscular HGB 25.9 pg (26.0-34.0); Mean Corpuscular HGB Conc 32.3 g/dL (31.5-36.5); Mean Corpuscular Volume 80 fL (80-100); NEUTROPHILS ABSOLUTE AUTO 12.85 K/mm3 (1.96-9.15); NEUTROPHILS PERCENT AUTO 79 % (41-73); RDW Coefficient Variation 17.6 % (11.7-14.2); RDW Standard Deviation 50.4 fL (35.1-46.3); Red Blood Cell Count 4.86 M/mm3 (3.80-5.20); White Blood Cell Count 16.24 K/mm3 (4.00-11.30)
[2022-01-25 17:59] LABS: Alanine Aminotransfer (ALT/SGP 35 U/L (12-78); Albumin, Blood 3.1 g/dL (3.4-5.0); Albumin/Globulin Ratio 0.8 (0.8-1.8); Alk Phos 121 U/L (40-126); Anion Gap 7 mmol/L (6-16); Aspartate Aminotrans (AST/SGOT 18 U/L (12-37); Bilirubin, Total 0.4 mg/dL (0.1-1.0); Blood Urea Nitrogen 24 mg/dL (8-24); Bun/Creatinine Ratio 30.4 (12.0-20.0); CO2, Blood 30 mmol/L (21-32); Calcium, Blood 8.9 mg/dL (8.5-10.1); Chloride, Blood 102 mmol/L (98-108); Creatinine, Blood 0.79 mg/dL (0.40-1.00); Globulin, Blood 3.7 g/dL (2.2-4.0); Glomerular Filtration Rate >60 (60-); Glucose, Blood 115 mg/dL (70-99); Potassium, Blood 4.2 mmol/L (3.5-5.5); Sodium, Blood 139 mmol/L (136-145); Total Protein, Blood 6.8 g/dL (6.4-8.2)
[2022-01-25 18:47] LABS: Mean Platelet Volume 8.5 fL (9.1-12.4); Platelet Count 389 K/mm3 (150-400)
== END | disposition home or self-care (01) ==
LOC: LAB 17:43 → LAB SHORT 17:43
PROVIDERS: Physician Assistant
DX: R60.9 Edema, unspecified (principal)
CPT/HCPCS: 80053; 83880; 85025

== ENCOUNTER 2022-07-27 15:11 | Emergency (ER) | payer OTHER ==
[~2022-07-27] VITALS: Ht 162.6 cm; Wt 79.4 kg
[~2022-07-27 15:11] MED LIST changes: +CEPH500 PO
[2022-07-27] MEDS ORDERED: BUPROPION XL150 M1 PO (15:21)
[2022-07-27] MEDS ORDERED: MELO7.5 PO (15:22)
== END 2022-07-27 15:51 | disposition home or self-care (01) ==
LOC: ER 15:11
DX: F41.9 Anxiety disorder, unspecified (principal); K21.9 Gastro-esophageal reflux disease without esophagitis; F17.210 Nicotine dependence, cigarettes, uncomplicated; Z88.5 Allergy status to narcotic agent; Z79.899 Other long term (current) drug therapy
CPT/HCPCS: 99283

== ENCOUNTER 2023-02-13 00:19 | Emergency (ER) | payer OTHER ==
[~2023-02-13] VITALS: Ht 162.6 cm; Wt 93.0 kg
[~2023-02-13 00:19] MED LIST changes: +BUPROPION XL150 M1 PO; +MELO7.5 PO
[2023-02-13 00:43] VITALS: BP 142/86
== END 2023-02-13 01:41 | disposition home or self-care (01) ==
LOC: ER 00:19
DX: R60.0 Localized edema (principal); L98.9 Disorder of the skin and subcutaneous tissue, unspecified; I50.9 Heart failure, unspecified; F17.210 Nicotine dependence, cigarettes, uncomplicated; Z88.5 Allergy status to narcotic agent
CPT/HCPCS: 99283

== ENCOUNTER 2023-03-23 18:20 | Inpatient (IN) | payer OTHER ==
[~2023-03-23] VITALS: Ht 162.6 cm; Wt 91.8 kg
[~2023-03-23 18:20] MED LIST changes: +BUSPIRONE HCL30 M1 PO; -Buspirone HCl15 MG PO; -KLOR-CON 1010 ME3 PO; +POTCHL20ER PO
[2023-03-23 19:10] LABS: BASOPHILS ABSOLUTE AUTO 0.05 K/mm3 (0.00-0.23); BASOPHILS PERCENT AUTO 0 % (0-2); EOSINOPHILS ABSOLUTE AUTO 0.03 K/mm3 (0.00-0.68); EOSINOPHILS PERCENT AUTO 0 % (0-6); Hemoglobin 12.3 g/dL (11.5-16.0); IMMATURE GRAN ABSOLUTE AUTO 0.09 K/mm3 (0.00-0.10); IMMATURE GRAN PERCENT AUTO 0 % (0-1); LYMPHOCYTES PERCENT AUTO 3 % (21-46); MONOCYTES ABSOLUTE AUTO 0.38 K/mm3 (0.16-1.47); MONOCYTES PERCENT AUTO 2 % (4-13); Mean Corpuscular HGB 25.9 pg (26.0-34.0); Mean Corpuscular HGB Conc 30.8 g/dL (31.5-36.5); Mean Corpuscular Volume 84 fL (80-100); Mean Platelet Volume 8.5 fL (9.1-12.4); NEUTROPHILS ABSOLUTE AUTO 19.17 K/mm3 (1.96-9.15); NEUTROPHILS PERCENT AUTO 94 % (41-73); Platelet Count 410 K/mm3 (150-400); RDW Coefficient Variation 17.5 % (11.7-14.2); RDW Standard Deviation 53.9 fL (35.1-46.3); Red Blood Cell Count 4.75 M/mm3 (3.80-5.20); White Blood Cell Count 20.32 K/mm3 (4.00-11.30)
[2023-03-23 19:26] LABS: Albumin, Blood 3.4 g/dL (3.4-5.0); Bilirubin, Total 0.2 mg/dL (0.1-1.0); Bun/Creatinine Ratio 21.4 (12.0-20.0); Calcium, Blood 8.5 mg/dL (8.5-10.1); Creatinine, Blood 1.4 mg/dL (0.40-1.00); Globulin, Blood 3.4 g/dL (2.2-4.0); Potassium, Blood 3.9 mmol/L (3.5-5.5); Total Protein, Blood 6.8 g/dL (6.4-8.2)
[2023-03-23 19:42] LABS: Base Excess Venous 1.6 mmol/L; Bicarbonate Venous 24.4 mmol/L (24.0-30.0); pH Blood Venous 7.29 (7.34-7.37)
[2023-03-23 19:47] LABS: International Normalized Ratio 0.99; Prothrombin Time Results 10.4 Sec (9.7-11.5)
[2023-03-23 22:00] VITALS: BP 121/67
[2023-03-23 22:26] VITALS: BP 101/52
[2023-03-23 23:19] LABS: Source, Urine Straight Cath
[2023-03-23 23:22] LABS: Bilirubin, Urine Neg (Neg); Blood, Urine Neg (Neg); Glucose Qualitative, Urine Neg (Neg); Ketones, Urine Neg (Neg); Leukocyte Esterase, Urine 1+ (Neg); Nitrite, Urine Neg (Neg); Protein, Urine 2+ (Neg); Specific Gravity, Urine 1.025 (1.003-1.022); Urobilinogen, Urine NORM (Normal)
[2023-03-23 23:40] LABS: U Amphetamine Screen DETECTED; U Methamphetamine Screen DETECTED
[2023-03-23 23:41] LABS: U Barbituate Screen Not Detected; U Benzodiazapine Screen Not Detected; U Buprenorphine Screen Not Detected; U Cannabinoids Screen DETECTED; U Cocaine Screen Not Detected; U Methadone Screen Not Detected; U Opiates Screen DETECTED; U Oxycodone Screen Not Detected; U Phencyclidine Screen Not Detected; U Propoxyphene Screen Not Detected
[2023-03-23 23:42] LABS: Appearance, Urine Clear (Clear); Color, Urine Yellow (P-Yellow)
[2023-03-23 23:43] LABS: Amorphous Light (0-Heavy); Bacteria Rare /hpf; Red Blood Cells, Urine Not Seen /hpf (0-2); Squamous Epithelial Cells Rare /hpf (Few); White Blood Cells, Urine 0-2 /hpf (0-5)
[2023-03-24 01:26] LABS: Influenza A, PCR NEGATIVE (NEGATIVE); Influenza B, PCR NEGATIVE (NEGATIVE); Resp Syncytial Virus, PCR NEGATIVE (NEGATIVE); SARS-Cov-2 (COVID-19) PCR, MMC NEGATIVE (NEGATIVE)
[2023-03-24 03:07] VITALS: BP 91/50
[2023-03-24 03:45] LABS: BASOPHILS ABSOLUTE AUTO 0.06 K/mm3 (0.00-0.23); BASOPHILS PERCENT AUTO 0 % (0-2); EOSINOPHILS ABSOLUTE AUTO 0.01 K/mm3 (0.00-0.68); EOSINOPHILS PERCENT AUTO 0 % (0-6); Hematocrit 40.6 % (33.0-51.0); Hemoglobin 12.4 g/dL (11.5-16.0); IMMATURE GRAN ABSOLUTE AUTO 0.07 K/mm3 (0.00-0.10); IMMATURE GRAN PERCENT AUTO 0 % (0-1); LYMPHOCYTES ABSOLUTE AUTO 0.63 K/mm3 (0.84-5.20); LYMPHOCYTES PERCENT AUTO 3 % (21-46); MONOCYTES ABSOLUTE AUTO 1.09 K/mm3 (0.16-1.47); MONOCYTES PERCENT AUTO 5 % (4-13); Mean Corpuscular HGB 25.8 pg (26.0-34.0); Mean Corpuscular HGB Conc 30.5 g/dL (31.5-36.5); Mean Corpuscular Volume 84 fL (80-100); Mean Platelet Volume 8.5 fL (9.1-12.4); NEUTROPHILS ABSOLUTE AUTO 18.17 K/mm3 (1.96-9.15); NEUTROPHILS PERCENT AUTO 91 % (41-73); Platelet Count 392 K/mm3 (150-400); RDW Coefficient Variation 17.4 % (11.7-14.2); RDW Standard Deviation 53.5 fL (35.1-46.3); Red Blood Cell Count 4.81 M/mm3 (3.80-5.20); White Blood Cell Count 20.03 K/mm3 (4.00-11.30)
[2023-03-24 04:07] LABS: Albumin, Blood 3.1 g/dL (3.4-5.0); Albumin/Globulin Ratio 0.9 (0.8-1.8); Bilirubin, Total 0.4 mg/dL (0.1-1.0); Calcium, Blood 8.2 mg/dL (8.5-10.1); Globulin, Blood 3.3 g/dL (2.2-4.0); Potassium, Blood 4.1 mmol/L (3.5-5.5); Total Protein, Blood 6.4 g/dL (6.4-8.2)
--- NOTE | 2023-03-24 05:35 | NUR ---
INCIDENT UPON ADMISSION, PT STATES BEING A SMOKER. PT ASKED BY STAFF IF SHE HAD A SALESPERSON BOOKS OR IGNITION SOURCE ON HER PERSON/BELONGINGS. PT STATES SHE HAD SOME IN HER PURSE, WHEN THIS RN AND SHUKRI CADE RN ASKED PT IF STAFF COULD GO THROUGH HER PURSE TO FIND THE LIGHTERS, PT AGREED AND GAVE CONSENT TO LOCK UP LIGHTERS. DUE TO WORRY OF POSSIBILITY OF SHARPS IN PURSE, CONTENT DUMPED ON TABLE TO FIND IGNITERS. UPON DUMPING OF CONTENTS: LARGE AMOUNTS OF CRYSTALL-LIKE SUBSTANCE IN SMALL BAGGIES, WHITE PILLS WITH IMPRINTS ON THEM, AND A SUBSTANCE IN A GLASS CONTAINER & CARMEX CUP WERE FOUND. THESE WERE PLACED IN A BAG AND DOUBLE SEALED. UPON DISCUSSION WITH NURSING RN VASCULAR BRUNILDA AND SECURITY STAFF, UNKNOWN SUBSTANCES WERE HANDED OVER TO SECURITY. DURING THIS TIME, AT MINIMUM OF TWO STAFF IN POSESSION OF BAG FOR ACCOUNTABILITY AND SAFETY PURPOSES.
--- NOTE | 2023-03-24 06:38 | NUR ---
ADMIT NOTE/SHIFT SUMMARY PT ARRIVED TO PCU FROM ED VIA ED STRETCHER AT APPROX 2130. PT WAS SLID BY 4 STAFF FROM ED STRETCHER TO PCU BED. PT HAS MOMENTS OF ALERTNESS, THEN DOSES. ORIENTED TO SELF. FOLLOWS COMMANDS BUT FORGETFUL. EASY TO REORIENT. SP02>90% ON ON 5L NC. NARCAN GIVEN IN ER, NOT GIVEN ON FLOOR THIS SHIFT. TELEMETRY SHOWS NSR, HR MOSTLY 80'S. BP DIFFICULT TO READ D/T PT SITTING UP AWAKE QUICKLY THEN DOZING OFF WITH ANY MOVEMENT OR SOUND, FREQUENTLY. PT UNABLE TO VOID UPON ARRIVAL. BLADDER SCAN SHOWED 500 MLS. STRAIGHT CATH DONE, UA SENT TO LAB PER ORDERS. PT VOMITED BROWN LIQUID MULTIPLE TIMES T/O NIGHT. HOB ELEVATED. SUCTION AT BEDSIDE. PT EDUCATED RE: IGNITION SOURCES AND RISK OF INJURY WHILE OXYGEN IS IN USE. PT VERBALIZED UNDERSTANDING. PT ORIENTED TO ROOM, CALL LIGHT. BED ALARM ON.
[2023-03-24 08:10] VITALS: BP 95/57
[2023-03-24 12:13] VITALS: BP 125/75
[2023-03-24 15:35] VITALS: BP 139/85
--- NOTE | 2023-03-24 16:20 | NUR ---
SHIFT SUMMARY; ASSUMED CARE AT 0700. SLEEPING BUT ARROUSABLE. O2 TITRATED DOWN TO 1L FROM 5L, SATS MAINTAINING >93%. UP TO BEDSIDE COMMODE WITH ASSISTANCE, REPOSTIONS SELF IN BED. 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 STATUS CHANGED TO MEDICAL, REPORT GIVEN TO RN FOR IN HOUSE TRANSFER.
--- NOTE | 2023-03-24 17:31 | NUR ---
CALL FROM [facility], REPORTED PT'S HR ESCALATED TO 150'S FOR ~ 6 SECONDS AND THEN RETURNED TO HER BASELINE OF 60-80. CHECKED PT, DENIED CHEST DISCOMFORT BUT ENDORSED SOB. CHECKED O2 SAT WAS 85% ON ROOM AIR; PLACED O2 @ 1.5 L/MIN NC WITH RESULTING O2 SAT 92-94%. IS NOW RESTING COMFORTABLY.
--- NOTE | 2023-03-24 19:46 | NUR ---
SHIFT SUMMARY: ASSUMED CARE OF PT UPON HER TRANSFER FROM [facility] 12 @ ~ 1645 VIA W/C. TWO PERSON TRANSFER FROM TO BED. TELE BOX VERIFIED [facility] DOCUMENTATION SPECIALIST, SR 70-80. PT PROMPTLY FELL ASLEEP. UNABLE TO EDUCATE ABOUT HIGH FIRE RISK AND NOT HAVING IGNITION SOURCES D/T LETHARGY. PATIENT SLEPT THE REST OF THE SHIFT. CALL LIGHT IN REACH, BED ALARM ON. ICE WATER PROVIDED.
[2023-03-24 20:24] VITALS: BP 134/80
[2023-03-25] MEDS ORDERED: Hydroxychloroq200 MG PO (00:37)
--- NOTE | 2023-03-25 03:46 | NUR ---
HEMATOLOGY CALLED, PT WITH GM + COCCI IN [place]. NOTIFIED, CURENTLY ON ROCEPHINE MD VASQUEZ OK WITH CURRENT TREATMENT
[2023-03-25 04:56] LABS: BASOPHILS ABSOLUTE AUTO 0.03 K/mm3 (0.00-0.23); BASOPHILS PERCENT AUTO 0 % (0-2); EOSINOPHILS ABSOLUTE AUTO 0.09 K/mm3 (0.00-0.68); EOSINOPHILS PERCENT AUTO 1 % (0-6); Hematocrit 36.1 % (33.0-51.0); Hemoglobin 11.5 g/dL (11.5-16.0); IMMATURE GRAN ABSOLUTE AUTO 0.04 K/mm3 (0.00-0.10); IMMATURE GRAN PERCENT AUTO 0 % (0-1); LYMPHOCYTES ABSOLUTE AUTO 1.13 K/mm3 (0.84-5.20); LYMPHOCYTES PERCENT AUTO 8 % (21-46); MONOCYTES ABSOLUTE AUTO 0.85 K/mm3 (0.16-1.47); MONOCYTES PERCENT AUTO 6 % (4-13); Mean Corpuscular HGB Conc 31.9 g/dL (31.5-36.5); Mean Corpuscular Volume 82 fL (80-100); Mean Platelet Volume 8.9 fL (9.1-12.4); NEUTROPHILS ABSOLUTE AUTO 11.46 K/mm3 (1.96-9.15); NEUTROPHILS PERCENT AUTO 84 % (41-73); Platelet Count 392 K/mm3 (150-400); RDW Coefficient Variation 17.1 % (11.7-14.2); RDW Standard Deviation 50.6 fL (35.1-46.3); Red Blood Cell Count 4.42 M/mm3 (3.80-5.20)
--- NOTE | 2023-03-25 04:56 | NUR ---
STEAM FINISHER SUMMARY VSS. RECEIVED FIRE IGNITION, OXYGEN SMOKING TEACHING EARLIER. SCD TO BLE. O2 AT 1.5L/MIN PER NC. AWAKE AT INTERVALS, CALLING OUT, THEN FALLING ASLEEP WHEN CHECKED ON IN ROOM. UP TO BEDSIDE COMMODE SEVERAL TIMES TO VOID. VOICED URGENCY. BLOOD CX RESULTS GM + COCCI IN [place]. NOTIFIED, PT ALREADY ON ROCEPHIN. VOICED THAT WOULD BE OK, NO FURTHER ORDERS. MED TELE SINUS RHYTHM IN THE 60'S. CONTACT PRECAUTIONS. CURRENLTY RESTING QUIETLY - RECEIVED TYLENOL FOR HEADACHE. CALL LIGHT IN REACH. WILL CONTINUE TO MONITOR
[2023-03-25 05:44] LABS: Albumin, Blood 2.9 g/dL (3.4-5.0); Albumin/Globulin Ratio 0.8 (0.8-1.8); Bilirubin, Total 0.5 mg/dL (0.1-1.0); Bun/Creatinine Ratio 34.2 (12.0-20.0); Calcium, Blood 8.8 mg/dL (8.5-10.1); Creatinine, Blood 0.56 mg/dL (0.40-1.00); Globulin, Blood 3.5 g/dL (2.2-4.0); Potassium, Blood 3.6 mmol/L (3.5-5.5); Total Protein, Blood 6.4 g/dL (6.4-8.2)
[2023-03-25 08:00] VITALS: BP 143/78
--- NOTE | 2023-03-25 16:40 | NUR ---
Upon receiving a referral for spiritual care, I visited the patient. She answers, "I don't know to all questions and becomes tearful as I sit with her but struggles to share the cause of her tears. She does say, "Yes, please" when prayer is offerred. I gladly provide prayer which brings sobs, but also she voices appreciation and aasks if I could come another time. I reply "yes." I will continue to remain available.
[2023-03-25 16:58] VITALS: BP 161/83
--- NOTE | 2023-03-25 19:19 | NUR ---
END OF SHIFT SUMMARY: PATIENT REPORTED A HEADACHE AND BACK PAIN TODAY. MEDICATED WITH PRN ACETAMINOPHEN AND PROVIDED WITH K-PAD. PATIENT ABLE TO GET SLEEP DURING THE DAY. PATIENT'S ALERTNESS AND MENTATION IMPROVED THROUGHOUT THE DAY. PATIENT SLEPT MOST OF THE DAY. PATIENT DENIES NAUSEA, BUT DID NOT EAT HER MEALS. PATIENT TOLERATING SODA WITHOUT DIFFICULTY. PATIENT UP TO THE BSC WITH ONE ASSIST. PATIENT UNSTEADY ON HER FEET.
[2023-03-25 20:11] VITALS: BP 179/118
[2023-03-25 22:07] VITALS: BP 153/106
[2023-03-26 02:03] VITALS: BP 166/95
--- NOTE | 2023-03-26 04:27 | NUR ---
SHIFT SUMMARY PT HAS BEEN COMPLAINING OF BACK PAIN. PT HAS BEEN TX WITH ORDERED TYLENOL. PT HAS TOSSED AND TURNED MOST OF THE SHIFT. PT PT REMAINS UNSTEADY ON HER FEET. PT HAS BEEN VOIDING WELL VIA BSC. PT IS DRINKING PO FLUIDS. PT WAS NOTED TO BE HYPERTENSIVE AND DR AMBRIZ WAS CONTACTED. PROVIDER ORDERED BLOOD PRESSURE MEDS. PT CURRENTLY SLEEPING AND IN NO DISTRESS. CALL LIGHT IN REACH [facility] BED ALARM ON.
[2023-03-26 06:03] LABS: BASOPHILS ABSOLUTE AUTO 0.06 K/mm3 (0.00-0.23); BASOPHILS PERCENT AUTO 1 % (0-2); EOSINOPHILS ABSOLUTE AUTO 0.21 K/mm3 (0.00-0.68); EOSINOPHILS PERCENT AUTO 2 % (0-6); Hematocrit 39.3 % (33.0-51.0); Hemoglobin 12.5 g/dL (11.5-16.0); IMMATURE GRAN ABSOLUTE AUTO 0.03 K/mm3 (0.00-0.10); IMMATURE GRAN PERCENT AUTO 0 % (0-1); LYMPHOCYTES ABSOLUTE AUTO 1.34 K/mm3 (0.84-5.20); LYMPHOCYTES PERCENT AUTO 13 % (21-46); MONOCYTES ABSOLUTE AUTO 0.99 K/mm3 (0.16-1.47); MONOCYTES PERCENT AUTO 9 % (4-13); Mean Corpuscular HGB 25.6 pg (26.0-34.0); Mean Corpuscular HGB Conc 31.8 g/dL (31.5-36.5); Mean Corpuscular Volume 80 fL (80-100); Mean Platelet Volume 8.6 fL (9.1-12.4); NEUTROPHILS ABSOLUTE AUTO 7.96 K/mm3 (1.96-9.15); NEUTROPHILS PERCENT AUTO 75 % (41-73); Platelet Count 418 K/mm3 (150-400); RDW Coefficient Variation 17.2 % (11.7-14.2); RDW Standard Deviation 49.9 fL (35.1-46.3); Red Blood Cell Count 4.89 M/mm3 (3.80-5.20); White Blood Cell Count 10.59 K/mm3 (4.00-11.30)
[2023-03-26 06:36] LABS: Bun/Creatinine Ratio 19.1 (12.0-20.0); Calcium, Blood 8.9 mg/dL (8.5-10.1); Creatinine, Blood 0.58 mg/dL (0.40-1.00)
[2023-03-26 08:53] VITALS: BP 143/91
[2023-03-26] MEDS ORDERED: SULTRIDS PO (12:52)
[2023-03-26] MEDS ORDERED: AMLO5 PO (12:52)
--- NOTE | 2023-03-26 14:04 | NUR ---
DISCHARGE SUMMARY: PATIENT MEDICATED FOR PAIN ONCE FOR SORE BACK. PATIENT ABLE TO REST THIS MORNING. PATIENT ALERT AND ORIENTED X4. PATIENT FOLLOWING DIRECTIONS. PATIENT CONTINUES TO DENY APPETITE AND NAUSEA. PATIENT TOLERATED PO FLUIDS WITHOUT DIFFICULTY. PATIENT UP TO THE BSC MULTIPLE TIMES TO VOID. NO DIFFICULTY VOIDING. PATIENT DENIES ITCHING, URGENCY, RETENTION, OR ANY DIFFICULTY RELATED TO VOIDING. URINE WAS YELLOW WITHOUT FOUL ODOR. BREATHS ARE EVEN AND REGULAR. NO SHORTNESS OF BREATH NOTED AT REST OR WITH MOBILITY. PATIENT REPORTS THAT SHE IS FEELING READY TO GO HOME. PATIENT READY FOR DISCHARGE HOME. MEDICATIONS FAXED TO [facility]. DISCHARGE INSTRUCTIONS AND EDUCATION PROVIDED TO THE PATIENT. PATIENT DENIED QUESTIONS. PATIENT STABLE AT DISCHARGE. PATIENT DISCHARGED IN WHEELCHAIR WITH RN.
== END 2023-03-26 13:16 | disposition home or self-care (01) | DRG 917 ==
LOC: ER 18:20 → PCU 18:21 → MEDS 03-24 13:12 → PCU 03-24 13:13 → MEDS 03-24 17:02
PROVIDERS: Emergency Medicine; Family Medicine; Internal Medicine; ADMIT Student in an Organized Health Care Education/Training Program
DX: T40.2X1A Poisoning by other opioids, accidental (unintentional), initial encounter (principal); A41.9 Sepsis, unspecified organism; J18.9 Pneumonia, unspecified organism; J96.02 Acute respiratory failure with hypercapnia; R65.20 Severe sepsis without septic shock; K92.0 Hematemesis; N17.9 Acute kidney failure, unspecified; N39.0 Urinary tract infection, site not specified; I24.9 Acute ischemic heart disease, unspecified; M06.9 Rheumatoid arthritis, unspecified; K21.9 Gastro-esophageal reflux disease without esophagitis; F17.210 Nicotine dependence, cigarettes, uncomplicated; F12.10 Cannabis abuse, uncomplicated; F15.10 Other stimulant abuse, uncomplicated; R77.8 Other specified abnormalities of plasma proteins; N18.9 Chronic kidney disease, unspecified; E86.1 Hypovolemia; K29.70 Gastritis, unspecified, without bleeding; F11.129 Opioid abuse with intoxication, unspecified; E16.2 Hypoglycemia, unspecified; Z20.822 Contact with and (suspected) exposure to COVID-19; Z85.41 Personal history of malignant neoplasm of cervix uteri; Z86.19 Personal history of other infectious and parasitic diseases; Z96.651 Presence of right artificial knee joint; Z98.890 Other specified postprocedural states; Z90.710 Acquired absence of both cervix and uterus; Z88.5 Allergy status to narcotic agent; Z79.899 Other long term (current) drug therapy; Z79.01 Long term (current) use of anticoagulants
CPT/HCPCS: 0241U; 36415; 51701; 71045; 76770; 80048; 80053; 81001; 82140; 82550; 82570; 82803; 82947; 83605; 83735; 84145; 84300; 84484; 85025; 85610; 85730; 86850; 86900; 86901; 87040; 93005; 93010; 94760; 96365; 96366; 96375; 96376; 99285-25; A9270; C9113; G0378; G0480; J0696; J2310; J2405; J3370; J7030; J7050; J7120

== ENCOUNTER 2023-11-13 12:06 | Emergency (ER) | payer OTHER ==
[~2023-11-13] VITALS: Ht 162.6 cm; Wt 77.1 kg
[~2023-11-13 12:06] MED LIST changes: +ACET500 PO; +AMLO5 PO; +SULTRIDS PO
[2023-11-13 12:28] VITALS: BP 139/112
[2023-11-13] MEDS ORDERED: Ketorolac Tromethamine 10 MG Tab PO ONE (12:30)
[2023-11-13] MEDS ORDERED: LIDO700A20 TOP (13:19)
[2023-11-13] MEDS ORDERED: Baclofen 10 MG Tab PO ONE (13:20)
[2023-11-13] MEDS ORDERED: Lidocaine 4% 1 Patch TOP ONE (13:25)
== END 2023-11-13 13:40 | disposition home or self-care (01) ==
LOC: ER 12:06
DX: M54.50 Low back pain, unspecified (principal); G89.29 Other chronic pain; Z88.5 Allergy status to narcotic agent; Z79.899 Other long term (current) drug therapy; M06.9 Rheumatoid arthritis, unspecified; K21.9 Gastro-esophageal reflux disease without esophagitis; F17.210 Nicotine dependence, cigarettes, uncomplicated
CPT/HCPCS: 99283; A9270